=== PATIENT | female | born 1980 | race Caucasian/White ===

== ENCOUNTER 2018-09-23 04:03 | Emergency (ER) | payer BC ==
--- OUTSIDE RECORDS SUMMARY | 2018-09-23 04:06 | XMS REPORT ---
:1980 [facility] Address [address] [place] [address] Care Team Providers Name Role Phone UNKNOWN, REFFERING Primary Care Provider Unavailable JAVY PATTEN M.D. Unavailable Unavailable TWILA MCGUIRE Unavailable Unavailable Problems This patient has no known problems. Allergies, Adverse Reactions, Alerts This patient has no known allergies or adverse reactions. Medications This patient has no known medications. Results Test Description Test Time Test Comments Text Results Atomic Results Result Comments RPR, Qual 2017-06-23 10:55:00 Test Item Value Reference Range Comments RPR (test code=RPR) Non-Reactive Non-Reactive [id number] 17:21:00 Test Item Value Reference Range Comments Amphetamine (test code=AMPH) Negative Negative For diagnostic purposes only, positive results should always be assessedin conjunctionwith the patient's medical history,clinical examination and otherfindings.To fulfill legal requirements, a more specific alternate chemical methodmust be used inorder to obtain a Confirmed analytical result. GC/MS is the preferred confirmatory method. Barbiturates (test code=ADAM) Negative Negative Benzodiazepine (test Negative Negative code=ANNEMARIE) Cocaine (test code=COCA) Negative Negative Methadone (test code=MTHD) Negative Negative Opiates (test code=OPIA) Negative Negative PCP (test code=PCP) Negative Negative Propoxyphene (test Negative Negative code=PROPOX) THC (test code=THC) Negative Negative Comprehensive Metabolic [id number] 17:21:00 Test Item Value Reference Range Comments Sodium (test code=NA) 141 mmol/L 135-145 Potassium (test code=K) 4.1 mmol/L 3.5-5.1 Chloride (test code=CL) 102 mmol/L 98-105 Carbon Dioxide (test 23 mmol/L 22-29 code=CO2) Glucose (test code=GLU) 130 mg/dL 70-115 Blood Urea Nitrogen 10 mg/dL 6-20 (test code=BUN) Creatinine (test 0.9 mg/dL 0.5-0.9 code=CREAT) Calcium (test code=CA) 9.5 mg/dL 8.3-10.5 Prot Total (test 7.4 g/dL 6.4-8.3 code=TP) Albumin (test code=ALB) 4.5 g/dL 3.5-5.2 A/G Ratio (test 1.6 Ratio code=AGRATIO) Globulin (test 2.9 2.9-3.1 code=GLOB) Bili Total (test 0.3 mg/dL 0.1-0.9 code=TBIL) Alk Phos (test 94 U/L 35-104 code=APHOS) AST (test code=AST) 19 U/L 1-32 ALT (test code=ALT) 16 U/L 1-33 BUN/Creatinine Ratio 11.1 (test code=BCRATIO) Anion Gap (test 16 mmol/L 7-16 code=AGAP) Estimated GFR (test >60 mL/min/1.73m2 eGFR (estimated Glomerular code=GFR) Filtration Rate) is an estimated value,calculated from the patient's serum creatinine using the MDRD equation.It is NOT the patient's actual GFR. The eGFR provides a more clinicallyuseful measure of kidney disease than serum creatinine alone.This calculation takes sex and race into account, if the informationis provided. If the race is not provided, and the patient isAfrican-Brazilian, multiply by 1.212. If sex is not provided, and thepatient is female, multiply by 0.742. Results for patients <18 years ofage have not been validated by the MDRD study and should be interpretedwith caution.eGFR Result Interpretation:eGFR > or=60 is in the Normal RangeeGFR < 60 may mean kidney diseaseeGFR < 15 may mean kidney failureRanges recommended by the National Kidney Foundation,http://nkdep.nih .gov BHCG, Serum, [id number] 17:14:00 Test Item Value Reference Range Comments Preg Qual [Se] (test code=BSHCG) Negative Negative Urinalysis [id number] 16:57:00 Test Item Value Reference Range Comments Color (test code=COLOR) Yellow Yellow,Straw,Pl yellow Clarity (test code=CLAR) Clear Clear Specific [place] (test code=SPGR) 1.012 1.001-1.035 pH (test code=PH) 5.0 5.0-9.0 Ketone (test code=KET) Negative mg/dL Negative Glucose (test code=GLUCUR) Negative mg/dL Negative Protein (test code=PROT) Negative mg/dL Negative Bilirubin (test code=BILI) Negative mg/dL Negative Occult Blood (test code=UDOB) Negative Negative Urobilinogen (test code=UROB) 0.2 mg/dL 0.2-1.0 Nitrite (test code=NIT) Negative Negative Leuk Esterase (test code=LEUK) Small Negative Micros Exam (test code=MEXAM) Indicated Epithelial Cells (test code=EPI) 10-14 /LPF 0-30 WBC, Urine (test code=UWBC) 0-2 /HPF 0-5 RBC, Urine (test code=URBC) None Seen /HPF 0-5 Bacteria (test code=BACT) Few /HPF CBC with [id number] 16:54:00 Test Item Value Reference Range Comments WBC (test code=WBC) 6.6 K/cumm 4.4-10.5 RBC (test code=RBC) 4.95 M/cumm 3.75-5.20 Hemoglobin (test code=HGB) 15.8 gm/dL 12.2-14.8 Hematocrit (test code=HCT) 44.3 % 36.5-44.4 MCV (test code=MCV) 89.4 fL 80-100 MCH (test code=MCH) 31.8 pg 27.0-32.5 MCHC (test code=MCHC) 35.6 g/dL 32.0-37.5 RDW (test code=RDW) 14.7 % 11.5-14.5 Platelet Count (test code=PLTCT) 239 K/cumm 140-440 MPV (test code=MPV) 6.9 fL Diff Method (test code=DIFFM) Auto Neutrophil (test code=NEUT) 57.9 % 36-70 Lymphocyte (test code=LYMPH) 35.6 % 12-44 Monocyte (test code=MONO) 5.2 % 0-11 Eosinophil (test code=EOS) 0.8 % 0-7 Basophil (test code=BASO) 0.6 % 0-2 Neutro Abs (test code=ANEUT) 3.8 K/cumm 1.6-7.4 Lymph Abs (test code=ALYMPH) 2.3 K/cumm 0.5-4.6 Sierra Abs (test code=AMONO) 0.4 K/cumm 0.0-1.2 Eos Abs (test code=AEOS) 0.05 K/cumm 0.00-0.74 Baso Abs (test code=ABASO) 0.0 K/cumm 0.00-0.21 RPR, [id number] 12:53:00 Test Item Value Reference Range Comments RPR (test code=RPR) Non-Reactive Non-Reactive Thyroid Stimulating Hormone (TSH)2016-05-16 07:32:00 Test Item Value Reference Range Comments TSH (test code=TSH) 0.56 mIU/mL 0.270-4.200 Urinalysis [id number] 20:05:00 Test Item Value Reference Range Comments Color (test code=COLOR) Yellow Yellow,Straw,Pl yellow Clarity (test code=CLAR) Clear Clear Specific [place] (test code=SPGR) 1.006 1.001-1.035 pH (test code=PH) 7.0 5.0-9.0 Ketone (test code=KET) Negative mg/dL Negative Glucose (test code=GLUCUR) Negative mg/dL Negative Protein (test code=PROT) Negative mg/dL Negative Bilirubin (test code=BILI) Negative mg/dL Negative Occult Blood (test code=UDOB) Large Negative Urobilinogen (test code=UROB) 0.2 mg/dL 0.2-1.0 Nitrite (test code=NIT) Negative Negative Leuk Esterase (test code=LEUK) Small Negative Ictotest (test code=ICTOTEST) Negative Negative,Confirmed Negative Clinitest (test code=CLINITEST) Not Indicated Micros Exam (test code=MEXAM) Indicated Epithelial Cells (test code=EPI) 0-2 /LPF 0-30 WBC, Urine (test code=UWBC) 2-5 /HPF 0-5 RBC, Urine (test code=URBC) 2-5 /HPF 0-5 Amorph Deposit (test code=AMORD) None /HPF Mucous, Urine (test code=UMUC) Trace /HPF Bacteria (test code=BACT) Few /HPF Yeast (test code=YEAST) None Seen /HPF Trichomonas (test code=TRICH) None Seen /HPF Casts (test code=CASTS) None /HPF Crystals (test code=GINI) None /HPF Comprehensive Metabolic [id number] 19:51:00 Test Item Value Reference Range Comments Sodium (test code=NA) 134 mmol/L 135-145 Potassium (test code=K) 3.9 mmol/L 3.5-5.1 Chloride (test code=CL) 101 mmol/L 98-105 Carbon Dioxide (test 26 mmol/L 22-29 code=CO2) Glucose (test code=GLU) 94 mg/dL 70-115 Blood Urea Nitrogen 11 mg/dL 6-20 (test code=BUN) Creatinine (test 0.8 mg/dL 0.5-0.9 code=CREAT) Calcium (test code=CA) 8.8 mg/dL 8.3-10.5 Prot Total (test 6.4 g/dL 6.4-8.3 code=TP) Albumin (test code=ALB) 3.8 g/dL 3.5-5.2 A/G Ratio (test 1.5 Ratio code=AGRATIO) Globulin (test 2.6 2.9-3.1 code=GLOB) Bili Total (test <0.1 mg/dL 0.1-0.9 code=TBIL) Alk Phos (test 75 U/L 35-104 code=APHOS) AST (test code=AST) 18 U/L 1-32 ALT (test code=ALT) 21 U/L 1-33 BUN/Creatinine Ratio 13.8 (test code=BCRATIO) Anion Gap (test 7 mmol/L 7-16 code=AGAP) Estimated GFR (test >60 mL/min/1.73m2 eGFR (estimated Glomerular code=GFR) Filtration Rate) is an estimated value,calculated from the patient's serum creatinine using the MDRD equation.It is NOT the patient's actual GFR. The eGFR provides a more clinicallyuseful measure of kidney disease than serum creatinine alone.This calculation takes sex and race into account, if the informationis provided. If the race is not provided, and the patient isAfrican-Brazilian, multiply by 1.212. If sex is not provided, and thepatient is female, multiply by 0.742. Results for patients <18 years ofage have not been validated by the MDRD study and should be interpretedwith caution.eGFR Result Interpretation:eGFR > or=60 is in the Normal RangeeGFR < 60 may mean kidney diseaseeGFR < 15 may mean kidney failureRanges recommended by the National Kidney Foundation,http://nkdep.nih .gov [id number] 19:46:00 Test Item Value Reference Range Comments Amphetamine (test code=AMPH) Negative Negative For diagnostic purposes only, positive results should always be assessedin conjunctionwith the patient's medical history,clinical examination and otherfindings.To fulfill legal requirements, a more specific alternate chemical methodmust be used inorder to obtain a Confirmed analytical result. GC/MS is the preferred confirmatory method. Barbiturates (test code=ADAM) Negative Negative Benzodiazepine (test POSITIVE Negative code=ANNEMARIE) Cocaine (test code=COCA) Negative Negative Methadone (test code=MTHD) Negative Negative Opiates (test code=OPIA) Negative Negative PCP (test code=PCP) Negative Negative Propoxyphene (test Negative Negative code=PROPOX) THC (test code=THC) Negative Negative Alcohol, Urine (test <0.01 g/dL 0.00-0.01 code=ETOHU) BHCG, Urine, [id number] 19:44:00 Test Item Value Reference Range Comments Preg Qual [Ur] (test code=HUHCG) Negative Negative CBC with [id number] 19:39:00 Test Item Value Reference Range Comments WBC (test code=WBC) 6.4 K/cumm 4.4-10.5 RBC (test code=RBC) 4.85 M/cumm 3.75-5.20 Hemoglobin (test code=HGB) 14.2 gm/dL 12.2-14.8 Hematocrit (test code=HCT) 43.7 % 36.5-44.4 MCV (test code=MCV) 90.0 fL 80-100 MCH (test code=MCH) 29.2 pg 27.0-32.5 MCHC (test code=MCHC) 32.5 g/dL 32.0-37.5 RDW (test code=RDW) 13.8 % 11.5-14.5 Platelet Count (test code=PLTCT) 219 K/cumm 140-440 MPV (test code=MPV) 8.1 fL Diff Method (test code=DIFFM) Auto Neutrophil (test code=NEUT) 44.0 % 36-70 Lymphocyte (test code=LYMPH) 47.8 % 12-44 Monocyte (test code=MONO) 6.8 % 0-11 Eosinophil (test code=EOS) 1.1 % 0-7 Basophil (test code=BASO) 0.3 % 0-2 Neutro Abs (test code=ANEUT) 2.8 K/cumm 1.6-7.4 Lymph Abs (test code=ALYMPH) 3.0 K/cumm 0.5-4.6 Sierra Abs (test code=AMONO) 0.4 K/cumm 0.0-1.2 Eos Abs (test code=AEOS) 0.07 K/cumm 0.00-0.74 Baso Abs (test code=ABASO) 0.0 K/cumm 0.00-0.21
[2018-09-23] MEDS ORDERED: NA CHLORIDE 0.9% 1,000 ML ONE (04:44)
--- NOTE | 2018-09-23 05:27 | ER ---
Nurse's Notes [facility] Name: Luli Shaw Age: 38 yrs Sex: Female : 1980 Arrival Date: 09/23/2018 Time: 04:20 Bed 2 Private MD: Diagnosis: Toxic effect of ethanol;Major depressive disorder, recurrent Presentation: 09/23 04:21 Presenting complaint: EMS states: Called for patient having seizure by , states lp1 patient has been having seizures the last couple days, been off of Dilantin for about 1 year, hx of seizures stress induced; Per EMS, patient actively seizing for about 2 minutes, relieved with administration of Ativan 2mg IV; Patient A/O x3 on arrival to ED; States recent of mother, + ETOH. Transition of care: patient was not received from another setting of care. Onset of symptoms was September 23, 2018. Risk Assessment: Do you want to hurt yourself or someone else? Patient reports no desire to harm self or others. Initial Sepsis Screen: Does the patient meet any 2 criteria? No. Patient's initial sepsis screen is negative. Does the patient have a suspected source of infection? No. Patient's initial sepsis screen is negative. Care prior to arrival: Medication(s) given: Ativan 2mg IV at 0347 IV initiated. 22 GA, in the right antecubital area, Glucose check: 86. 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 - Social history:: Smoking status: Patient uses tobacco products, smokes one pack cigarettes per day. Patient uses alcohol, admits to "couple of beers" a day. - Ebola Screening: : No symptoms or risks identified at this time. Screenin:31 Abuse screen: Denies threats or abuse. Denies injuries from another. Nutritional lp1 screening: No deficits noted. Tuberculosis screening: No symptoms or risk factors identified. Fall Risk Total Meade Fall Scale indicates High Risk Score (45 or more points). Fall prevention measures have been instituted. Side Rails Up X 2 As available patient and family educated on Fall Prevention Program and Strategies. Assessment: 04:15 Reassessment: at bedside with patient. General: Appears in no apparent lp1 distress. Behavior is crying, Patient states being upset due to recent of her mother. Pain: Denies pain. Neuro: Level of Consciousness is awake, alert, obeys commands, Oriented to person, place, time, situation, Moves all extremities. Full function Gait is steady, Speech is normal. Cardiovascular: Patient's skin is warm and dry. Respiratory: Respiratory effort is even, unlabored. GI: No signs and/or symptoms were reported involving the gastrointestinal system. : No signs and/or symptoms were reported regarding the genitourinary system. EENT: No signs and/or symptoms were reported regarding the EENT system. Derm: Skin is pink, warm \\T\\ dry. Musculoskeletal: Circulation, motion, and sensation intact. 04:20 Reassessment: Dr. Mercado at bedside to discuss care with patient; Patient requesting to lp1 leave, demonstrates understanding to stay and receive care. 04:33 Reassessment: Patient pulled out IV to R AC at this time; States wanting to leave at lp1 this time; "My wanted me to come, but I didn't want to". 05:00 Reassessment: Patient calm at this time, allowed me to insert 22g IV to L AC; patient lp1 demonstrates understanding. 05:10 Reassessment: After walking out of room, patient upset with at bedside, yelling lp1 "I don't want to be here!"; Patient pulled out IV, walked out of room, steady gait noted; Patient walked out of ED, family following; Provider aware. Vital Signs: 04:23 BP 119 / 83; Pulse 79; Resp 14; Temp 98.6(O); Pulse Ox 100% on R/A; Weight 61.23 kg; lp1 Height 5 ft. 2 in. (157.48 cm); Pain 0/10; 04:23 Body Mass Index 24.69 (61.23 kg, 157.48 cm) lp1 ED Course: 04:20 Patient arrived in ED. tl1 04:20 Gayatri Horton, RN is Primary Nurse. lp1 04:23 Triage completed. lp1 04:24 Arm band placed on left wrist. lp1 04:31 Venu Mercado MD is Attending Physician. gs 04:32 Patient has correct armband on for positive identification. Bed in low position. Call lp1 light in reach. Seizure precautions initiated. youth nutritional monitor on. Pulse ox on. NIBP on. 04:33 Patient pulled out EMS IV to R AC. lp1 04:39 No provider procedures requiring assistance completed. lp1 Administered Medications: 04:38 Not Given (Patient pulled out IV): NS 0.9% 1000 ml IV at 1 bolus Per protocol; 1000 mL lp1 bolus Outcome: 05:15 Discharged to home ambulatory, with family. lp1 05:15 Condition: stable 05:15 Discharge instructions given to family, Discussed with family patient's right to leave ED, demonstrates understanding; Aware patient can return if she wants to have any treatment 05:20 Patient left the ED. lp1 05:26 Discharge ordered by . Signatures: Gayatri Horton RN RN lp1 Vera Meng, RN RN tl1 Venu Mercado MD MD Corrections: (The following items were deleted from the chart) 04:33 04:31 Reassessment: Dr. Mercado at bedside to discuss care with patient; Patient lp1 requesting to leave, demonstrates understanding to stay and receive care lp1 04:33 04:33 Reassessment: Patient pulled out IV to R AC at this time; States wanting to leave lp1 at this time lp1 05:37 05:36 Patient left the ED. lp1 lp1
--- NOTE | 2018-09-23 05:27 | EDPHYS ---
Physician Documentation [facility] Name: Luli Shaw Age: 38 yrs Sex: Female : 1980 Arrival Date: 09/23/2018 Time: 04:20 Bed 2 Private MD: ED Physician Venu Mercado HPI: 09/23 05:22 This 38 yrs old Female presents to ER via EMS with complaints of etoh gs intoxication,pseudoseizures. 05:22 The patient presents to the emergency department with a history of substance abuse, gs Type: whisky. Onset: The symptoms/episode began/occurred yesterday. Associated signs and symptoms: Pertinent positives; depression, substance abuse. Severity of symptoms: At their worst the symptoms were severe in the emergency department the symptoms are unchanged. The patient has experienced similar episodes in the past, several times. The patient has not recently seen a physician. 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 - Social history:: Smoking status: Patient uses tobacco products, smokes one pack cigarettes per day. Patient uses alcohol, admits to "couple of beers" a day. - Ebola Screening: : No symptoms or risks identified at this time. ROS: 05:22 All other systems are negative. gs Exam: 05:22 Head/Face: Normocephalic, atraumatic. Eyes: Pupils equal round and reactive to light, gs extra-ocular motions intact. Lids and lashes normal. Conjunctiva and sclera are non-icteric and not injected. Cornea within normal limits. Periorbital areas with no swelling, redness, or edema. ENT: Nares patent. No nasal discharge, no septal abnormalities noted. Tympanic membranes are normal and external auditory canals are clear. Oropharynx with no redness, swelling, or masses, exudates, or evidence of obstruction, uvula midline. Mucous membranes moist. Neck: Trachea midline, no thyromegaly or masses palpated, and no cervical lymphadenopathy. Supple, full range of motion without nuchal rigidity, or vertebral point tenderness. No Meningismus. Chest/axilla: Normal chest wall appearance and motion. Nontender with no deformity. No lesions are appreciated. Cardiovascular: Regular rate and rhythm with a normal S1 and S2. No gallops, murmurs, or rubs. Normal PMI, no JVD. No pulse deficits. Respiratory: Lungs have equal breath sounds bilaterally, clear to auscultation and percussion. No rales, rhonchi or wheezes noted. No increased work of breathing, no retractions or nasal flaring. Abdomen/GI: Soft, non-tender, with normal bowel sounds. No distension or tympany. No guarding or rebound. No evidence of tenderness throughout. Back: No spinal tenderness. No costovertebral tenderness. Full range of motion. Skin: Warm, dry with normal turgor. Normal color with no rashes, no lesions, and no evidence of cellulitis. MS/ Extremity: Pulses equal, no cyanosis. Neurovascular intact. Full, normal range of motion. Neuro: Awake and alert, GCS 15, oriented to person, place, time, and situation. Cranial nerves II-XII grossly intact. Motor strength 5/5 in all extremities. Sensory grossly intact. Cerebellar exam normal. Normal gait. 05:22 Constitutional: The patient appears alert, awake, smells of alcohol, ETOH. 05:22 Psych: Behavior/mood is uncooperative, depressed, angry, Affect is tearful. Oriented to person, place, time, Patient has no thoughts/intents to harm self or others. Judgement / Insight is impaired. Delusions/hallucinations are not present. Vital Signs: 04:23 BP 119 / 83; Pulse 79; Resp 14; Temp 98.6(O); Pulse Ox 100% on R/A; Weight 61.23 kg; lp1 Height 5 ft. 2 in. (157.48 cm); Pain 0/10; 04:23 Body Mass Index 24.69 (61.23 kg, 157.48 cm) lp1 MDM: 04:31 Patient medically screened. 05:22 Data reviewed: vital signs, nurses notes. Counseling: I had a detailed discussion with gs the patient and/or guardian regarding: the historical points, exam findings, and any diagnostic results supporting the discharge/admit diagnosis. ED course: is concerned for sz, pt states doesn't want help ivf blood work mental health referral just wants to go home. pt is ambulatory lucid denies harmful intent. Administered Medications: 04:38 Not Given (Patient pulled out IV): NS 0.9% 1000 ml IV at 1 bolus Per protocol; 1000 mL lp1 bolus Disposition: 09/23/18 05:26 Discharged to Home. Impression: Toxic effect of ethanol, Major depressive disorder, recurrent. - Condition is Stable. - Discharge Instructions: Alcohol Intoxication. - Medication Reconciliation Form, Thank You Letter, Antibiotic Education, Prescription Opioid Use form. - Follow up: Private Physician; When: 2 - 3 days; Reason: Re-evaluation by your physician. Signatures: Gayatri Horton RN RN lp1 Venu Mercado MD MD gs Corrections: (The following items were deleted from the chart) 05:36 05:26 09/23/2018 05:26 Discharged to Home. Impression: Toxic effect of ethanol; Major lp1 depressive disorder, recurrent. Condition is Stable. Forms are Medication Reconciliation Form, Thank You Letter, Antibiotic Education, Prescription Opioid Use. Follow up: Private Physician; When: 2 - 3 days; Reason: Re-evaluation by your physician. gs
[2018-09-23 05:45] VITALS: BP 119/83; TEMP 98.6; O2SAT 100
[2018-09-23] MEDS ORDERED: ONDANSETRON 4 MG/2 ML VIAL ONE (07:43)
== END 2018-09-23 05:36 | disposition home or self-care (01) ==
LOC: ER 04:03
DX: F33.9 Major depressive disorder, recurrent, unspecified (principal); F17.210 Nicotine dependence, cigarettes, uncomplicated; Z91.048 Other nonmedicinal substance allergy status
CPT/HCPCS: 99284; J2405; J7030

== ENCOUNTER 2018-09-23 05:53 | Emergency (ER) | payer BC ==
--- OUTSIDE RECORDS SUMMARY | 2018-09-23 05:55 | XMS REPORT ---
:1980 Author Organization [facility] Address [address] [place] [address] [address] [place] [address] Care Team Providers Name Role Phone UNKNOWN, [...] Range Comments RPR (test code=RPR) Non-Reactive Non-Reactive [id number] 17:21:00 Test Item Value Reference Range Comments [...] THC (test code=THC) Negative Negative Comprehensive Metabolic [id number] 17:21:00 Test Item Value Reference Range Comments [...] race is not provided, and the patient isAfrican-Canadian, multiply by 1.212. If sex is not [...] the National Kidney Foundation,http://nkdep.nih .gov BHCG, Serum, [id number] 17:14:00 Test Item Value Reference Range Comments Preg Qual [Se] (test code=BSHCG) Negative Negative Urinalysis [id number] 16:57:00 Test Item Value Reference Range Comments Color (test code=COLOR) Yellow Yellow,Straw,Pl yellow Clarity (test code=CLAR) Clear Clear Specific [place] (test code=SPGR) 1.012 1.001-1.035 pH (test code=PH) [...] Bacteria (test code=BACT) Few /HPF CBC with [id number] 16:54:00 Test Item Value Reference Range Comments [...] Lymph Abs (test code=ALYMPH) 2.3 K/cumm 0.5-4.6 [place] Abs (test code=AMONO) 0.4 K/cumm 0.0-1.2 Eos Abs (test code=AEOS) 0.05 K/cumm 0.00-0.74 Baso Abs (test code=ABASO) 0.0 K/cumm 0.00-0.21 RPR, [id number] 12:53:00 Test Item Value Reference Range Comments RPR (test code=RPR) Non-Reactive Non-Reactive Thyroid Stimulating Hormone (TSH)2016-05-16 07:32:00 Test Item Value Reference Range Comments TSH (test code=TSH) 0.56 mIU/mL 0.270-4.200 Urinalysis [id number] 20:05:00 Test Item Value Reference Range Comments Color (test code=COLOR) Yellow Yellow,Straw,Pl yellow Clarity (test code=CLAR) Clear Clear Specific [place] (test code=SPGR) 1.006 1.001-1.035 pH (test code=PH) [...] Crystals (test code=GINI) None /HPF Comprehensive Metabolic [id number] 19:51:00 Test Item Value Reference Range Comments [...] race is not provided, and the patient isAfrican-Canadian, multiply by 1.212. If sex is not provided, and thepatient is female, multiply by 0.742. Results for patients <18 years ofage have not been validated by the MDRD study and should be interpretedwith caution.eGFR Result Interpretation:eGFR > or=60 is in the Normal RangeeGFR < 60 may mean kidney diseaseeGFR < 15 may mean kidney failureRanges recommended by the National Kidney Foundation,http://nkdep.nih .gov [id number] 19:46:00 Test Item Value Reference Range Comments [...] (test <0.01 g/dL 0.00-0.01 code=ETOHU) BHCG, Urine, [id number] 19:44:00 Test Item Value Reference Range Comments Preg Qual [Ur] (test code=HUHCG) Negative Negative CBC with [id number] 19:39:00 Test Item Value Reference Range Comments [...] Lymph Abs (test code=ALYMPH) 3.0 K/cumm 0.5-4.6 [place] Abs (test code=AMONO) 0.4 K/cumm 0.0-1.2 Eos Abs (test code=AEOS) 0.07 K/cumm 0.00-0.74 Baso Abs (test code=ABASO) 0.0 K/cumm 0.00-0.21
[2018-09-23 07:33] LABS: Absolute Lymphocytes (CBC) 2.2 K/uL (0.7-4.9); Basophils % 1.2 % (0-1.3); Eosinophils % 0.8 % (0-4.4); Hematocrit 43.9 % (36.0-45.0); Lymphocytes % 43.1 % (15.3-44.8); MPV 7.8 fL (7.6-11.3); Monocytes % 8.9 % (3.3-12.3); RBC Red Blood Cell Count 4.71 M/uL (3.86-4.86)
[2018-09-23 07:35] LABS: Protime INR 0.9
[2018-09-23 07:46] LABS: ALT/SGPT 23 U/L (12-78); AST/SGOT 18 U/L (15-37); Albumin 3.7 g/dL (3.4-5.0); Alkaline Phosphatase 66 U/L (45-117); BUN Blood Urea Nitrogen 12 mg/dL (7-18); Bicarbonate 24 mmol/L (21-32); Bilirubin Direct < 0.1 mg/dL (0-0.2); Bilirubin Total 0.2 mg/dL (0.2-1.0); Glucose Level 74 mg/dL (74-106); Potassium 3.8 mmol/L (3.5-5.1); Protein, Total 7.4 g/dL (6.4-8.2); Sodium Level 144 mmol/L (136-145)
[2018-09-23] MEDS ORDERED: NA CHLORIDE 0.9% 1,000 ML ONE (08:46)
[2018-09-23] MEDS ORDERED: KETOROLAC 30 MG/ML INJ ONE (08:46)
[2018-09-23] MEDS ORDERED: DIPHENHYDRAMINE 50 MG/ML VIAL ONE (08:46)
[2018-09-23] MEDS ORDERED: METOCLOPRAMIDE 10 MG/2mL INJ ONE (08:46)
[2018-09-23 08:58] LABS: Barbiturates NEGATIVE (NEGATIVE); Benzodiazepines NEGATIVE (NEGATIVE); Cocaine NEGATIVE (NEGATIVE); METHAMPHETAM NEGATIVE (NEGATIVE); Methadone NEGATIVE (NEGATIVE); Opiates NEGATIVE (NEGATIVE); Phencyclidine NEGATIVE (NEGATIVE); THC Cannibis POSITIVE (NEGATIVE)
--- NOTE | 2018-09-23 09:25 | ER ---
Nurse's Notes [facility] Name: Luli Shaw Age: 38 yrs Sex: Female : 1980 Arrival Date: 09/23/2018 Time: 05:56 Bed 4 Private MD: Diagnosis: Headache;Alcohol abuse;Cannabis abuse Presentation: 09/23 06:00 Presenting complaint: states: Patient walked out of ED from visit just a few lp1 minutes ago, was in parking lot, sat on ground and then fell backward,hitting back of head on concrete; No LOC; Patient states "I just want this headache to go away"; + ETOH. Transition of care: patient was not received from another setting of care. Onset of symptoms was September 23, 2018. Risk Assessment: Do you want to hurt yourself or someone else? Patient reports no desire to harm self or others. Initial Sepsis Screen: Does the patient meet any 2 criteria? No. Patient's initial sepsis screen is negative. Does the patient have a suspected source of infection? No. Patient's initial sepsis screen is negative. Care prior to arrival: None. 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 - Social history:: Smoking status: Patient uses tobacco products, smokes one pack cigarettes per day. Patient uses alcohol. - Ebola Screening: : No symptoms or risks identified at this time. Screenin:22 Abuse screen: Denies threats or abuse. Denies injuries from another. Nutritional lp1 screening: No deficits noted. Tuberculosis screening: No symptoms or risk factors identified. Fall Risk None identified. Assessment: 06:30 General: Appears in no apparent distress. Behavior is crying. Pain: Complains of pain lp1 in head Pain currently is 10 out of 10 on a pain scale. Neuro: Level of Consciousness is awake, alert, obeys commands, Oriented to person, place, time, situation, Gait is steady, Speech is normal, Pupils are PERRLA, Reports headache in right parietal area, since 2 weeks ago, intermittent. Cardiovascular: Patient's skin is warm and dry. Respiratory: Respiratory effort is even, unlabored. GI: No signs and/or symptoms were reported involving the gastrointestinal system. : No signs and/or symptoms were reported regarding the genitourinary system. EENT: No signs and/or symptoms were reported regarding the EENT system. Derm: Skin is pink, warm \\T\\ dry. Musculoskeletal: Circulation, motion, and sensation intact. 08:23 Reassessment: Patient appears in no apparent distress at this time. No changes from tw2 previously documented assessment. Patient and/or family updated on plan of care and expected duration. Pain level reassessed. Patient is alert, oriented x 3, equal unlabored respirations, skin warm/dry/pink. 08:51 Reassessment: Patient appears in no apparent distress at this time. Patient states ae4 feeling better. Patient states symptoms have improved. Vital Signs: 06:19 BP 118 / 86; Pulse 88; Resp 16; Temp 97.8(TE); Pulse Ox 97% on R/A; Weight 61.23 kg; lp1 Height 5 ft. 2 in. (157.48 cm); Pain 8/10; 07:33 BP 113 / 73; Pulse 73; Resp 16; Pulse Ox 100% ; ae4 08:22 BP 106 / 79; Pulse 71; Resp 17; Pulse Ox 99% on R/A; tw2 10:09 BP 107 / 71; Pulse 70; Resp 15; Pulse Ox 100% on R/A; ae4 06:19 Body Mass Index 24.69 (61.23 kg, 157.48 cm) lp1 ED Course: 05:56 Patient arrived in ED. tl1 05:59 Gayatri Hotron, KAREN is Primary Nurse. lp1 06:04 Ángel Whittington NP is PHCP. pm1 06:04 Venu Mercado MD is Attending Physician. pm1 06:19 Triage completed. lp1 06:19 Arm band placed on left wrist. lp1 06:21 Patient has correct armband on for positive identification. Pulse ox on. NIBP on. lp1 06:55 CT Head Brain wo Cont In Process Unspecified. EDMS 07:15 Inserted saline lock: 20 gauge in right antecubital area, using aseptic technique. ae4 Blood collected. 07:23 CT completed. Patient tolerated procedure well. Patient moved back from CT. bq 08:25 Dex Mcguire, RN is Primary Nurse. ae4 10:10 No provider procedures requiring assistance completed. IV discontinued, intact, ae4 bleeding controlled, No redness/swelling at site. Pressure dressing applied. Administered Medications: Discontinued: NS 0.9% 1000 ml IV at 1000 ml once 07:31 Drug: Zofran 4 mg Route: IVP; Site: right antecubital; ae4 08:50 Follow up: Response: Nausea is decreased ae4 08:33 Drug: NS 0.9% 1000 ml Route: IV; Rate: 1000 ml; Site: right antecubital; ae4 10:07 Follow up: IV Intake: 800ml ae4 08:36 Drug: Benadryl 12.5 mg Route: IVP; Site: right antecubital; ae4 10:08 Follow up: Response: Pain is decreased; Patient appears more relaxed. ae4 08:39 Drug: TORadol 30 mg Route: IVP; Site: right antecubital; ae4 10:08 Follow up: Response: Pain is decreased ae4 08:41 Drug: Reglan 10 mg Route: IVP; Site: right antecubital; ae4 10:09 Follow up: Response: Pain is decreased ae4 Intake: 10:07 IV: 800ml; Total: 800ml. ae4 Outcome: 09:25 Discharge ordered by MD. pm1 10:10 Discharged to home ambulatory, with significant other. ae4 10:10 Condition: stable 10:10 Discharge instructions given to patient, significant other, Instructed on discharge instructions, follow up and referral plans. medication usage, Demonstrated understanding of instructions, Prescriptions given X 1. 10:10 Patient left the ED. ae4 Signatures: Dispatcher [employer] EDMS Marsha Miller Laura RN RN lp1 Vera Meng RN RN tl1 Ángel Whittington, DESIGNER DESIGNER pm1 Juanita Vilchis RN RN tw2 Dex Mcguire, RN RN ae4
--- NOTE | 2018-09-23 09:25 | EDPHYS ---
Physician Documentation [facility] Name: Luli Shaw Age: 38 yrs Sex: Female : 1980 Arrival Date: 09/23/2018 Time: 05:56 Bed 4 Private MD: ED Physician Venu Mercado HPI: 09/23 06:29 This 38 yrs old Female presents to ER via Wheelchair with complaints of pm1 Headache. 06:29 The patient complains of pain to the right frontal area and right occipital area. The pm1 patient describes the headache as aching, constant. Onset: The symptoms/episode began/occurred Has been ongoing for three months and worse the past week. Associated signs and symptoms: The patient has no apparent associated signs or symptoms. Severity of symptoms: in the emergency department the pain is actually worse. Headache History: The patient has had previous headaches. The symptoms are alleviated by nothing. the symptoms are aggravated by alcohol, stress. The patient has experienced similar episodes in the past, multiple times. The patient has not recently seen a physician, Has taken prescription medications for headaches in the past. Last time she took that medication was over one year ago. 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 - Social history:: Smoking status: Patient uses tobacco products, smokes one pack cigarettes per day. Patient uses alcohol. - Ebola Screening: : No symptoms or risks identified at this time. ROS: 06:29 Constitutional: Negative for fever, chills, and weight loss, Eyes: Negative for injury, pm1 pain, redness, and discharge, ENT: Negative for injury, pain, and discharge, Neck: Negative for injury, pain, and swelling, Cardiovascular: Negative for chest pain, palpitations, and edema, Respiratory: Negative for shortness of breath, cough, wheezing, and pleuritic chest pain, Abdomen/GI: Negative for abdominal pain, nausea, vomiting, diarrhea, and constipation, Back: Negative for injury and pain, : Negative for injury, bleeding, discharge, and swelling, MS/Extremity: Negative for injury and deformity, Skin: Negative for injury, rash, and discoloration. 06:29 Neuro: Positive for headache, Negative for altered mental status, numbness, tingling, weakness. 06:29 Psych: Positive for depression, Negative for auditory hallucinations, visual hallucinations, homicidal ideation, suicide gesture, suicidal ideation. Exam: 06:29 Constitutional: This is a well developed, well nourished patient who is awake, alert, pm1 and in no acute distress. Head/Face: Normocephalic, atraumatic. Eyes: Pupils equal round and reactive to light, extra-ocular motions intact. Lids and lashes normal. Conjunctiva and sclera are non-icteric and not injected. Cornea within normal limits. Periorbital areas with no swelling, redness, or edema. ENT: Nares patent. No nasal discharge, no septal abnormalities noted. Tympanic membranes are normal and external auditory canals are clear. Oropharynx with no redness, swelling, or masses, exudates, or evidence of obstruction, uvula midline. Mucous membranes moist. Neck: Trachea midline, no thyromegaly or masses palpated, and no cervical lymphadenopathy. Supple, full range of motion without nuchal rigidity, or vertebral point tenderness. No Meningismus. Chest/axilla: Normal chest wall appearance and motion. Nontender with no deformity. No lesions are appreciated. Cardiovascular: Regular rate and rhythm with a normal S1 and S2. No gallops, murmurs, or rubs. Normal PMI, no JVD. No pulse deficits. Respiratory: Lungs have equal breath sounds bilaterally, clear to auscultation and percussion. No rales, rhonchi or wheezes noted. No increased work of breathing, no retractions or nasal flaring. Abdomen/GI: Soft, non-tender, with normal bowel sounds. No distension or tympany. No guarding or rebound. No evidence of tenderness throughout. Back: No spinal tenderness. No costovertebral tenderness. Full range of motion. Skin: Warm, dry with normal turgor. Normal color with no rashes, no lesions, and no evidence of cellulitis. MS/ Extremity: Pulses equal, no cyanosis. Neurovascular intact. Full, normal range of motion. 06:29 Neuro: Orientation: is normal, Motor: is normal. 06:29 Psych: Behavior/mood is cooperative, Affect is animated, Oriented to person, place, time, Patient has no thoughts/intents to harm self or others. Vital Signs: 06:19 BP 118 / 86; Pulse 88; Resp 16; Temp 97.8(TE); Pulse Ox 97% on R/A; Weight 61.23 kg; lp1 Height 5 ft. 2 in. (157.48 cm); Pain 8/10; 07:33 BP 113 / 73; Pulse 73; Resp 16; Pulse Ox 100% ; ae4 08:22 BP 106 / 79; Pulse 71; Resp 17; Pulse Ox 99% on R/A; tw2 10:09 BP 107 / 71; Pulse 70; Resp 15; Pulse Ox 100% on R/A; ae4 06:19 Body Mass Index 24.69 (61.23 kg, 157.48 cm) lp1 MDM: 06:27 Patient medically screened. pm1 08:57 Data reviewed: vital signs. Data interpreted: Pulse oximetry: on room air is 99 %. pm1 Interpretation: normal. 09:24 Counseling: I had a detailed discussion with the patient and/or guardian regarding: the pm1 historical points, exam findings, and any diagnostic results supporting the discharge/admit diagnosis, lab results, radiology results, the need for outpatient follow up, to return to the emergency department if symptoms worsen or persist or if there are any questions or concerns that arise at home. 09/23 06:29 Order name: Acetaminophen; Complete Time: 08:16 pm09/23 06:29 Order name: Basic Metabolic Panel; Complete Time: 08:16 pm09/23 06:29 Order name: CBC with Diff; Complete Time: 07:41 pm09/23 06:29 Order name: ETOH Level; Complete Time: 07:48 pm09/23 06:29 Order name: Hepatic Function; Complete Time: 08:16 pm09/23 06:29 Order name: PT-INR; Complete Time: 07:41 pm09/23 06:29 Order name: CT Head Brain wo Cont pm1 09/23 06:29 Order name: Ptt, Activated; Complete Time: 07:41 pm09/23 06:29 Order name: Salicylate; Complete Time: 07:41 pm09/23 06:29 Order name: Urine Drug Screen; Complete Time: 09:24 pm1 09/23 08:36 Order name: Urine Dipstick--Ancillary (enter results); Complete Time: 10: eb 09/23 08:36 Order name: Urine --Ancillary (enter results); Complete Time: 10:07 eb 09/23 06:29 Order name: Urine Test (obtain specimen); Complete Time: 08:22 pm1 09/23 06:29 Order name: EKG; Complete Time: 06:29 pm1 09/23 06:29 Order name: EKG - Nurse/Tech; Complete Time: 07:31 pm1 09/23 06:29 Order name: IV Saline Lock; Complete Time: 07:31 pm1 09/23 06:29 Order name: Labs collected and sent; Complete Time: 07:31 pm1 09/23 06:29 Order name: Urine Dipstick-Ancillary (obtain specimen); Complete Time: 08:22 pm1 EC:23 Rate is 61 beats/min. Rhythm is regular, Normal Sinus Rhythm with No ectopy. QRS Arthur pm1 is Normal. No Q waves. T waves are Normal. No ST changes noted. Clinical impression: Normal ECG. Administered Medications: Discontinued: NS 0.9% 1000 ml IV at 1000 ml once 07:31 Drug: Zofran 4 mg Route: IVP; Site: right antecubital; ae4 08:50 Follow up: Response: Nausea is decreased ae4 08:33 Drug: NS 0.9% 1000 ml Route: IV; Rate: 1000 ml; Site: right antecubital; ae4 10:07 Follow up: IV Intake: 800ml ae4 08:36 Drug: Benadryl 12.5 mg Route: IVP; Site: right antecubital; ae4 10:08 Follow up: Response: Pain is decreased; Patient appears more relaxed. ae4 08:39 Drug: TORadol 30 mg Route: IVP; Site: right antecubital; ae4 10:08 Follow up: Response: Pain is decreased ae4 08:41 Drug: Reglan 10 mg Route: IVP; Site: right antecubital; ae4 10:09 Follow up: Response: Pain is decreased ae4 Disposition: 09/24 01:32 Co-signature as Attending Physician, Venu Mercado MD. Disposition: 09/23/18 09:25 Discharged to Home. Impression: Headache, Alcohol abuse, Cannabis abuse. - Condition is Stable. - Discharge Instructions: General Headache Without Cause, Cannabis Use Disorder, Alcohol Abuse and Nutrition. - Prescriptions for Fiorinal 50- 325-40 mg Oral Capsule - take 1 capsule by ORAL route every 4 hours As needed - not to exceed 6 capsules per day; 20 capsule. - Medication Reconciliation Form, Thank You Letter, Antibiotic Education, Prescription Opioid Use form. - Follow up: Emergency Department; When: As needed; Reason: Worsening of condition. Follow up: Private Physician; When: 2 - 3 days; Reason: Recheck today's complaints, Continuance of care, Re-evaluation by your physician. - Problem is new. - Symptoms have improved. Signatures: Dispatcher [employer] EDMS Gayatri Horton RN RN lp1 Ángel Whittington NP CHANGE ADVISOR pm1 Venu Mercado MD MD gs Dex Mcguire RN RN ae4 Corrections: (The following items were deleted from the chart) 09/23 10:10 09:25 09/23/2018 09:25 Discharged to Home. Impression: Headache; Alcohol abuse; ae4 Cannabis abuse. Condition is Stable. Discharge Instructions: General Headache Without Cause, Alcohol Abuse and Nutrition. Prescriptions for Fiorinal 50-325-40 mg Oral Capsule - take 1 capsule by ORAL route every 4 hours As needed - not to exceed 6 capsules per day; 20 capsule. and Forms are Medication Reconciliation Form, Thank You Letter, Antibiotic Education, Prescription Opioid Use. Follow up: Emergency Department; When: As needed; Reason: Worsening of condition. Follow up: Private Physician; When: 2 - 3 days; Reason: Recheck today's complaints, Continuance of care, Re-evaluation by your physician. Problem is new. Symptoms have improved. pm1
--- NOTE | 2018-09-23 09:56 | EKG ---
Test Date: 2018-09-23 Test Time: 07:18:17 Customs Manager: RISA MEASUREMENT RESULTS: Intervals: Rate: 61 [place]: 114 QRSD: 82 QT: 414 QTc: 416 [place]: P: 78 [place]: 114 QRS: 78 T: 59 INTERPRETIVE STATEMENTS: Normal sinus rhythm Normal ECG Compared to ECG 04/24/2014 09:24:47 No significant changes Electronically Signed On 09-23-18 09:55:50 CDT by Vahid Levine
[2018-09-23 10:03] LABS: Urine Blood 1+ (NEG); Urine Glucose NEGATIVE (NEG); Urine Protein NEGATIVE (NEG); Urine pH 5.5 (5.0-7.0)
[2018-09-23 10:30] VITALS: TEMP 97.8
[2018-09-23 10:35] VITALS: BP 107/71; O2SAT 100
--- NOTE | 2018-09-25 12:28 | RAD REPORT ---
EXAM DESCRIPTION: Head Brain Wo Cont CLINICAL HISTORY: HEADACHE COMPARISON: None. TECHNIQUE: CT HEAD WITHOUT IV CONTRAST on 09/23/2018 6:29 AM CDT This exam was performed according to our departmental dose-optimization program, which includes autom ated exposure control, adjustment of the mA and/or kV according to patient size and/or use of iterati ve reconstruction technique. FINDINGS: There is no acute hemorrhage, mass effect or midline shift. Mccray-white differentiation is preserved. There is no hydrocephalus. There is no significant volume loss for age. The calvarium is intact. Orbits and globes are unremarkable. The paranasal sinuses are clear. Mastoid air cells are clear. IMPRESSION: No acute intracranial findings. Electronically signed by: Hector Prieto MD 09/23/2018 6:57 AM CDT Due to temporary technical issues with the PACS/Fluency reporting system, reports are being signed by the in house radiologist as a courtesy to ensure prompt reporting. The interpreting radiologist is f ully responsible for the content of the report.
== END 2018-09-23 10:10 | disposition home or self-care (01) ==
LOC: ER 05:53
DX: F10.10 Alcohol abuse, uncomplicated (principal); F12.10 Cannabis abuse, uncomplicated; F17.210 Nicotine dependence, cigarettes, uncomplicated
CPT/HCPCS: 36415; 70450; 80048; 80076; 80307; 80320; 80329; 81003; 81025; 85025; 85610; 85730; 93005; 96374; 96375; 99284; J2765; J7030